=== PATIENT | male | born 1950 | race Two or more races ===

== ENCOUNTER 2018-03-22 11:24 | Outpatient (CLI) | payer OTHER | END 2018-03-22 11:36 | disposition home or self-care (01) | LOC: SONOGRAMA 11:24 | DX: D21.21 Benign neoplasm of connective and other soft tissue of right lower limb, including hip (principal) ==

== ENCOUNTER 2018-03-30 10:55 | Outpatient (CLI) | payer OTHER | END 2018-03-30 10:56 | disposition home or self-care (01) | LOC: SONOGRAMA 10:55 | DX: M79.89 Other specified soft tissue disorders (principal) ==

== ENCOUNTER 2018-04-15 07:49 | Outpatient (CLI) | payer OTHER | END 2018-04-15 08:15 | disposition home or self-care (01) | LOC: LAB 07:49 | DX: D21.21 Benign neoplasm of connective and other soft tissue of right lower limb, including hip (principal) ==

== ENCOUNTER 2018-04-16 09:18 | Outpatient (CLI) | payer OTHER | END 2018-04-16 10:02 | disposition home or self-care (01) | LOC: MRI 09:18 | DX: M79.89 Other specified soft tissue disorders (principal); R22.41 Localized swelling, mass and lump, right lower limb | CPT/HCPCS: 71045; 73720; A9579; 73719 ==

== ENCOUNTER 2018-04-22 06:08 | Day surgery (SDC) | payer OTHER | END 2018-04-22 16:30 | disposition home or self-care (01) | LOC: CIR.AMB 06:08 | DX: D21.21 Benign neoplasm of connective and other soft tissue of right lower limb, including hip (principal) ==